=== PATIENT | female | born 1980 | race Caucasian/White ===

== ENCOUNTER 2018-09-23 08:42 | Emergency (ER) | payer OTHER ==
[~2018-09-23] VITALS: Ht 172.7 cm; Wt 65.8 kg
[~2018-09-23 08:42] MED LIST: CELEBREX100 MG PO
== END 2018-09-23 18:12 | disposition home or self-care (01) ==
LOC: ER 08:42
DX: R10.13 Epigastric pain (principal)

== ENCOUNTER 2020-09-05 09:21 | Outpatient (CLI) | payer OTHER | END 2020-09-05 09:27 | disposition home or self-care (01) | LOC: RAD 09:21 | DX: J45.21 Mild intermittent asthma with (acute) exacerbation (principal); R05 Cough ==

== ENCOUNTER 2020-09-15 13:11 | Outpatient (CLI) | payer OTHER | END 2020-09-15 13:37 | disposition home or self-care (01) | LOC: RAD 13:11 | DX: U07.1 COVID-19 (principal); R06.02 Shortness of breath; R06.00 Dyspnea, unspecified; R05 Cough; R53.1 Weakness; J16.8 Pneumonia due to other specified infectious organisms ==

== ENCOUNTER 2021-08-11 14:35 | Outpatient (CLI) | payer OTHER | END 2021-08-11 14:45 | disposition home or self-care (01) | LOC: PPH VACUNA 14:35 | PROVIDERS: ATTEND Emergency Medicine Pediatric Emergency Medicine | DX: Z23 Encounter for immunization (principal) ==

== ENCOUNTER 2021-12-01 15:45 | Outpatient (CLI) | payer OTHER | END 2021-12-01 15:51 | disposition home or self-care (01) | LOC: RAD 15:45 | PROVIDERS: ATTEND Internal Medicine | DX: I10 Essential (primary) hypertension (principal); E11.9 Type 2 diabetes mellitus without complications; E03.8 Other specified hypothyroidism ==

== ENCOUNTER 2022-10-16 14:31 | Outpatient (CLI) | payer OTHER | END 2022-10-16 14:41 | disposition home or self-care (01) | LOC: RAD 14:31 | DX: J20.9 Acute bronchitis, unspecified (principal); R06.02 Shortness of breath; R05.9 Cough, unspecified; R07.89 Other chest pain ==

== ENCOUNTER 2024-09-18 10:45 | Outpatient (CLI) | payer OTHER | END 2024-09-18 10:52 | disposition home or self-care (01) | LOC: RAD 10:45 | PROVIDERS: ATTEND Internal Medicine Gastroenterology | DX: R05.9 Cough, unspecified (principal) ==

== ENCOUNTER 2025-07-08 20:38 | Emergency (ER) | payer OTHER ==
[~2025-07-08] VITALS: Ht 172.7 cm; Wt 73.9 kg
[2025-07-08] MEDS ORDERED: FAMOTIDINE/PF 20 MG in 0.9 % SODIUM CHLORIDE 8 ML IV PUSH STA (21:07)
[2025-07-08] MEDS ORDERED: ONDANSETRON HCL 2 MG/ML VIAL ONE (21:09)
[2025-07-08] MEDS ORDERED: KETOROLAC TROMETHAMINE 30 MG VIAL ONE (21:09)
[2025-07-08] MEDS ORDERED: FAMOTIDINE/PF 20 MG/2 ML VIAL ONE (21:09)
[2025-07-08] MEDS ORDERED: KETOROLAC TROMETHAMINE 30 MG VIAL IV ONE (21:15)
[2025-07-08] MEDS ORDERED: ONDANSETRON HCL 2 MG/ML VIAL IV ONE (21:15)
[2025-07-08] MEDS ORDERED: 0.9 % SODIUM CHLORIDE 1,000 ML IV SCH (21:15)
[2025-07-08 21:35] LABS: BASO % 0.2 % (0.1-1.2); EOS # 0.03 (0.04-0.54); EOS % 0.4 % (0.7-7.0); LYMPH # 1.69 (1.18-3.74); LYMPH % 20.2 % (19.3-53.1); MEAN PLATELET VOLUME 11.50 fl (9.4-12.4); MONO # 0.92 (0.24-0.82); MONO % 11.0 % (4.7-12.5); NEUT # 5.68 (1.56-6.13); NEUT % 68.1 % (34.0-71.1); RED CELL DISTRIBUTION WIDTH 14.6 % (11.6-14.4)
[2025-07-08 22:02] LABS: ALT/SGPT 31.0 U/L (12-78); AST/SGOT 23.0 U/L (15-37); BILIRUBIN TOTAL 0.46 mg/dL (0.3-1.2); BUN CREA RATIO 17.0 (7.0-25.0); CREATININE SERUM 0.72 mg/dL (0.55-1.02); GFR 87.99; GLOBULINA 3.8 G/DL (2.4-3.5); GLUCOSE FASTING 86.0 mg/dL (65-100); OSMOLALITY SERUM 280.0 MOSM/KG (275-295)
[2025-07-08 22:02] LABS: URINE APPEARANCE Error; URINE BILIRRUBIN Negative (NEGATIVE); URINE BLOOD Trace; URINE COLOR Yellow; URINE GLUCOSE Negative (NEGATIVE); URINE KETONE 15 (NEGATIVE); URINE LEUKOCYTE Trace; URINE NITRATE Negative; URINE PROTEIN Negative (NEGATIVE); URINE UROBILINOGEN 0.2 E.U./dl
[2025-07-08 22:06] LABS: URINE BACTERIA 484.7 uL (0.0-1933); URINE EPITHELIAL CELLS 21.8 uL (0.0-38.8); URINE RBC 4.6 uL (0.0-20.8); URINE WBC 26.3 uL (0.0-23.2)
[2025-07-08 22:21] LABS: URINE CAST 0.00 uL (0.0-1.40)
[2025-07-08] MEDS ORDERED: PEPCID AC20 MG PO (22:58)
[2025-07-08] MEDS ORDERED: DICLOFENAC SODI75 MG PO (22:58)
[2025-07-08] MEDS ORDERED: ONDANSETRON ODT8 MG PO (22:58)
[2025-07-08 23:33] VITALS: BP 130/80; O2SAT 100
== END 2025-07-08 23:35 | disposition home or self-care (01) ==
LOC: ER 20:38
PROVIDERS: General Practice
DX: R10.32 Left lower quadrant pain (principal)

== ENCOUNTER 2025-10-06 19:16 | Emergency (ER) | payer OTHER ==
[~2025-10-06] VITALS: Ht 172.7 cm; Wt 74.4 kg
[~2025-10-06 19:16] MED LIST changes: +DICLOFENAC SODI75 MG PO; +ONDANSETRON ODT8 MG PO; +PEPCID AC20 MG PO
[2025-10-06] MEDS ORDERED: FAMOtidine 10 MG/ML (4ML VIAL) IV ONE (19:45)
[2025-10-06] MEDS ORDERED: 0.9 % SODIUM CHLORIDE 1,000 ML IV ONE (19:45)
[2025-10-06] MEDS ORDERED: KETOROLAC TROMETHAMINE 30 MG VIAL IV ONE (19:45)
[2025-10-06 20:16] LABS: BASO % 0.4 % (0.1-1.2); EOS # 0.08 (0.04-0.54); EOS % 1.5 % (0.7-7.0); LYMPH # 1.91 (1.18-3.74); LYMPH % 35.3 % (19.3-53.1); MEAN PLATELET VOLUME 11.00 fl (9.4-12.4); MONO # 0.58 (0.24-0.82); MONO % 10.7 % (4.7-12.5); NEUT # 2.81 (1.56-6.13); NEUT % 51.9 % (34.0-71.1); RED CELL DISTRIBUTION WIDTH 14.6 % (11.6-14.4)
[2025-10-06 20:49] LABS: INR 1.03
[2025-10-06 21:02] LABS: ALT/SGPT 25 U/L (12-78); AST/SGOT 17 U/L (15-37); BILIRUBIN TOTAL 0.30 mg/dL (0.3-1.2); BUN CREA RATIO 31 (7.0-25.0); CREATININE SERUM 0.71 mg/dL (0.55-1.02); GFR 89.43; GLOBULINA 3.5 G/DL (2.4-3.5); GLUCOSE FASTING 95 mg/dL (65-100); OSMOLALITY SERUM 284 MOSM/KG (275-295)
[2025-10-06 21:03] LABS: HCG QUANTITATIVE < 1 mUI/mL (1-3)
[2025-10-06 21:28] LABS: URINE APPEARANCE Clear; URINE BILIRRUBIN Negative (NEGATIVE); URINE BLOOD Negative; URINE COLOR Yellow; URINE GLUCOSE Negative (NEGATIVE); URINE KETONE Negative (NEGATIVE); URINE LEUKOCYTE Negative; URINE NITRATE Negative; URINE PROTEIN Negative (NEGATIVE); URINE UROBILINOGEN 0.2 E.U./dl
[2025-10-06 21:32] LABS: URINE BACTERIA 296.3 uL (0.0-1933); URINE EPITHELIAL CELLS 6.5 uL (0.0-38.8); URINE RBC 2.6 uL (0.0-20.8); URINE WBC 5.3 uL (0.0-23.2)
[2025-10-06 21:41] LABS: URINE CAST 0.00 uL (0.0-1.40)
[2025-10-06] MEDS ORDERED: NORFLEX100MG PO (23:42)
[2025-10-06] MEDS ORDERED: PEPCID AC20 MG PO (23:42)
== END 2025-10-06 23:54 | disposition home or self-care (01) ==
LOC: ER 19:16
PROVIDERS: General Practice
DX: R10.31 Right lower quadrant pain (principal); R10.9 Unspecified abdominal pain
CPT/HCPCS: 36415; 74177; Q9965